=== PATIENT | female | born 1970 | race Hispanic/Latino ===

== ENCOUNTER 2021-09-28 18:17 | Emergency (ER) | payer OTHER ==
[2021-09-28 18:28] VITALS: BP 133/84
[2021-09-28] MEDS ORDERED: traMADol 50 MG TAB PO ONE (23:36)
--- NOTE | 2021-09-29 00:10 | XRay Report ---
Right ankle, 3 views HISTORY: Pain COMPARISON: None FINDINGS: No acute fracture or malalignment. Nonaggressive appearing area of sclerosis in the distal tibia, lik john reflecting bone island. There is no significant arthritis. No focal soft tissue abnormality. IMPRESSION: No acute osseous findings of the right ankle. Signer Name: Thomas Olivier MD Signed: 09/29/2021 12:06 AM Workstation Name: [id number]
--- NOTE | 2021-09-29 00:18 | Emergency Department Report ---
ED Lower Extremity HPI - General Chief Complaint: Extremity Injury, Lower Stated Complaint: RIGHT ANKLE PAIN Time Seen by Provider: 09/28/21 23:35 Source: EMS Mode of arrival: Stretcher Limitations: No Limitations - History of Present Illness Initial Comments: Is a 50-year-old female who presents for right lateral ankle pain. States she slipped and fell 1 week ago. Now with pain and swelling and unable to bear full weight. Pain is described as 8/10 sharp achy exacerbated by attempted weightbearing. Pain is relieved by nothing tried. Patient denies other injuries. There is no abrasion laceration or bleeding. Patient denies numbness or tingling. MD Complaint: ankle injury - Related Data Previous Rx's Medication Instructions Recorded Last Taken Type Apixaban [Eliquis] 5 mg PO Q12HR #60 tablet 09/16/21 Unknown Rx AtorvaSTATin [Lipitor] 20 mg PO QHS #30 tablet 09/16/21 Unknown Rx Clopidogrel [Plavix] 75 mg PO QDAY #30 tablet 09/16/21 Unknown Rx Pantoprazole [Protonix TAB] 40 mg PO QDAC #30 tablet 09/16/21 Unknown Rx oxyCODONE /ACETAMINOPHEN [Percocet 1 tab PO BID PRN #14 09/16/21 Unknown Rx 5/325] Naproxen 500 mg PO BID PRN #30 tab 09/29/21 Unknown Rx Allergies Allergy/AdvReac Type Severity Reaction Status Date / Time cephalexin Allergy Unknown Verified 09/14/21 10:37 vancomycin Allergy Itching Verified 09/12/21 18:16 ED Review of Systems ROS: Stated complaint: RIGHT ANKLE PAIN Other details as noted in HPI Constitutional: denies: chills, fever Eyes: denies: eye pain, eye discharge, vision change ENT: denies: ear pain, throat pain Respiratory: denies: cough, shortness of breath, wheezing Cardiovascular: denies: chest pain, palpitations Endocrine: no symptoms reported Gastrointestinal: denies: abdominal pain, nausea, diarrhea Genitourinary: denies: urgency, dysuria, discharge Musculoskeletal: other (Right ankle pain). denies: back pain, joint swelling, arthralgia Skin: denies: rash, lesions Neurological: denies: headache, weakness, paresthesias Psychiatric: denies: anxiety, depression Hematological/Lymphatic: denies: easy bleeding, easy bruising ED Past Medical Hx - Past Medical History Previous Medical History?: Yes Hx Congestive Heart Failure: No Hx Diabetes: No Hx Asthma: No Hx COPD: No Hx HIV: No Additional medical history: snake bite, blood clots - Surgical History Past Surgical History?: Yes Additional Surgical History: thyroidectomy - Social History Smoking Status: Current Every Day Smoker - Medications Home Medications: Home Medications Medication Instructions Recorded Confirmed Last Taken Type Apixaban [Eliquis] 5 mg PO Q12HR #60 tablet 09/16/21 Unknown Rx AtorvaSTATin [Lipitor] 20 mg PO QHS #30 tablet 09/16/21 Unknown Rx Clopidogrel [Plavix] 75 mg PO QDAY #30 tablet 09/16/21 Unknown Rx Pantoprazole [Protonix TAB] 40 mg PO QDAC #30 tablet 09/16/21 Unknown Rx oxyCODONE /ACETAMINOPHEN [Percocet 1 tab PO BID PRN #14 09/16/21 Unknown Rx 5/325] Naproxen 500 mg PO BID PRN #30 tab 09/29/21 Unknown Rx ED Physical Exam - General Limitations: No Limitations General appearance: alert, in no apparent distress - Head Head exam: Present: normocephalic, normal inspection - Eye Eye exam: Present: normal appearance, EOMI Pupils: Present: normal accommodation - ENT ENT exam: Present: mucous membranes moist - Neck Neck exam: Present: normal inspection, full ROM. Absent: tenderness - Respiratory Respiratory exam: Present: normal lung sounds bilaterally. Absent: respiratory distress, wheezes - Cardiovascular Cardiovascular Exam: Present: regular rate, normal rhythm, normal heart sounds. Absent: systolic murmur, diastolic murmur, rubs, gallop - GI/Abdominal GI/Abdominal exam: Present: soft, normal bowel sounds. Absent: distended, tenderness - Rectal Rectal exam: Present: deferred - Extremities Exam Extremities exam: Present: normal inspection, full ROM, normal capillary refill, joint swelling - Expanded Lower Extremity Exam Right Ankle exam: Present: tenderness, swelling, erythema. Absent: abrasion, laceration, ecchymosis, deformity, crepidus, dislocation, anterior draw sign Foot/Toe exam: Present: full ROM, tenderness, swelling Neuro vascular tendon exam: Absent: pulse deficit, motor deficit, sensory deficit, tendon deficit Gait: Positive: observed and limited by pain - Back Exam Back exam: Present: normal inspection, full ROM. Absent: CVA tenderness (R), CVA tenderness (L) - Neurological Exam Neurological exam: Present: alert, oriented X3, CN II-XII intact, reflexes normal. Absent: motor sensory deficit - Expanded Neurological Exam Expanded Patient oriented to: Present: person, place, time Speech: Present: fluid speech Sensory exam: Lower Extremity Pin Prick: Normal, Lower Extremity Temperature: Normal, LE 2 Point Discrimination: Normal Motor strength exam: RLE: 5, LLE: 5 DTR: ankle (R): 1+, ankle (L): 1+ Best Eye Response ([place]): (4) open spontaneously Best Motor Response ([place]): (6) obeys commands Best Verbal Response ([place]): (5) oriented [place] Total: 15 - Psychiatric Psychiatric exam: Present: normal affect, normal mood - Skin Skin exam: Present: warm, dry, intact, normal color. Absent: rash ED Course Vital Signs 09/28/21 18:22 Temperature 98.3 F Pulse Rate 116 H Respiratory 17 Rate Blood Pressure 133/84 [Left] O2 Sat by Pulse 98 Oximetry ED Lower Extremity MDM - Radiology Data Radiology results: report reviewed, image reviewed interpreted by me: Right ankle, 3 views HISTORY: Pain COMPARISON: None FINDINGS: No acute fracture or malalignment. Nonaggressive appearing area of sclerosis in the distal tibia, likely reflecting bone island. There is no significant arthritis. No focal soft tissue abnormality. IMPRESSION: No acute osseous findings of the right ankle. Signer Name: Irish Nevarez MD Signed: 09/29/2021 12:06 AM Workstation Name: [id number] Transcribed By: JS Dictated By: IRISH NEVAREZ MD Electronically Authenticated By: IRISH NEVAREZ MD Signed Date/Time: 09/29/21 0006 DD/ 0005 TD/TT: Right ankle, 3 views no fracture no subluxation mild soft tissue swelling. Plan DC to home with prescriptions. Follow-up with your primary care doctor in 2 to 3 days. Patient verbalized agreement and understanding with discharge plan. - Medical Decision Making X-ray demonstrates no fracture. Noted arthralgia. CMS remains intact. Patient DC'd to self in stable condition at this time, will follow-up with orthopedic surgery in 1 to 2 days. Plans DC to home in stable condition at this time. Patient demonstrates safe use of crutches. Critical care attestation.: If time is entered above; I have spent that time in minutes in the direct care of this critically ill patient, excluding procedure time. ED Disposition Clinical Impression: Ankle sprain Qualifiers: Encounter type: initial encounter Involved ligament of ankle: unspecified ligament Laterality: right Qualified Code(s): S93.401A - Sprain of unspecified ligament of right ankle, initial encounter Disposition: HOME / SELF CARE / HOMELESS Is pt being admited?: No Does the pt Need Aspirin: No Condition: Stable Instructions: Elastic Bandage and RICE Therapy, Crutch Use, Adult, [id number] Additional Instructions: Take medications as prescribed, follow-up with your doctor in 1 to 2 days for evaluation and terminal treatment. Return to emergency should symptoms worsen Prescriptions: Naproxen 500 mg PO BID PRN #30 tab PRN Reason: Pain Referrals: BETO CANNON MD [Staff Physician] - 3-5 Days Forms: Work/School Release Form(ED) Time of Disposition: 00:34
== END 2021-09-29 02:29 | disposition home or self-care (01) ==
LOC: ED 18:17
DX: S93.402A Sprain of unspecified ligament of left ankle, initial encounter (principal); Z98.890 Other specified postprocedural states; F17.290 Nicotine dependence, other tobacco product, uncomplicated; Z88.1 Allergy status to other antibiotic agents; W19.XXXA Unspecified fall, initial encounter; Y93.89 Activity, other specified; Y92.89 Other specified places as the place of occurrence of the external cause; Y99.8 Other external cause status
CPT/HCPCS: 99284